=== PATIENT | female | born 1990 | race Caucasian/White ===

== ENCOUNTER 2018-08-31 12:19 | Day surgery (SDC) | payer MEDICAID ==
[2018-08-30 13:57] LABS: BASOPHILS # (AUTO) 0.1 X10'3 (0-0.2); BASOPHILS % (AUTO) 0.6 % (0-1); EOSINOPHILS # (AUTO) 0.3 X10'3 (0-0.9); EOSINOPHILS % (AUTO) 3.2 % (0-6); LYMPHOCYTES # (AUTO) 2.6 X10'3 (1.1-4.8); LYMPHOCYTES % (AUTO) 27.7 % (21-51); MEAN CORPUSCULAR HEMOGLOBIN 29.4 PG (27.0-31.0); MEAN CORPUSCULAR HGB CONC 33.1 g/dL (33.0-36.5); MEAN CORPUSCULAR VOLUME 88.7 FL (78-98); MEAN PLATELET VOLUME 7.9 FL (7.4-10.4); MONOCYTES # (AUTO) 0.7 X10'3 (0-0.9); MONOCYTES % (AUTO) 7.7 % (2-12); NEUTROPHILS # (AUTO) 5.7 X10'3 (1.8-7.7); NEUTROPHILS % (AUTO) 60.8 % (42-75); PRE OP HEMATOCRIT 42.5 % (35.0-45.0); PRE OP HEMOGLOBIN 14.1 g/dL (12.0-16.0); PRE OP PLATELET COUNT 406 X10'3 (140-440); RED BLOOD COUNT 4.79 X10'6 (4.20-5.60); RED CELL DISTRIBUTION WIDTH 15.5 % (11.5-14.5)
[2018-08-30 14:18] LABS: ALBUMIN 4.1 G/DL (3.4-5.0); ALKALINE PHOSPHATASE 69 IU/L (46-116); BLOOD UREA NITROGEN 10 MG/DL (7-18); BUN/CREATININE RATIO 11.8 (6.6-38.0); CALCIUM 9.6 MG/DL (8.5-10.1); CHLORIDE 105 MMOL/L (99-107); CREATININE 0.85 MG/DL (0.40-0.90); PRE OP ALT 23 U/L (30-65); PRE OP ANION GAP 9 (8-16); PRE OP AST 13 U/L (10-37); PRE OP BILIRUB, TOTAL 0.3 MG/DL (0.0-1.0); PRE OP GLUCOSE 110 MG/DL (70-104); PRE OP POTASSIUM 3.7 MMOL/L (3.4-5.1); PRE OP SODIUM 140 MMOL/L (135-145); TOTAL PROTEIN 8.1 G/DL (6.4-8.2); eGFR 80 ML/MIN
[2018-08-30 15:20] LABS: HCG SERUM QL NEGATIVE
[~2018-08-31] VITALS: Ht 157.5 cm; Wt 48.1 kg
[2018-08-31] VITALS (15 sets, daily range): BP systolic 108–129; BP diastolic 56–87
[~2018-08-31 12:19] MED LIST: NO HOME MEDS
[2018-08-31] MEDS ORDERED: famotidine 20mg tablet PO ONE (12:45)
[2018-08-31] MEDS ORDERED: ringers solution, lacted 1,000 ML IV SCH ×2 (12:45→15:43)
[2018-08-31] MEDS ORDERED: BUPIVAcaine/PF 2.5mg/ml (0.25%) 10ml vial ONE (15:26)
[2018-08-31] MEDS ORDERED: meperidine/PF 25mg/ml syringe IV PRN ×3 (15:45)
[2018-08-31] MEDS ORDERED: morphine 4 MG/ML inj SYRINge IV PRN ×2 (15:45)
[2018-08-31] MEDS ORDERED: ondansetron/PF 4mg/2ml inj IV PRN (15:45)
[2018-08-31] MEDS ORDERED: proCHLORperazine 10 MG/2 ml inj IV PRN (15:45)
[2018-08-31] MEDS ORDERED: sevoflurane 250ml liquid IH ONE (16:22)
[2018-08-31] MEDS ORDERED: midazolam 2 mg/2 ml injection ONE (16:29)
[2018-08-31] MEDS ORDERED: fentaNYL/PF 50MCG/1 ML 2ML syringe ONE (16:29)
[2018-08-31] MEDS ORDERED: neostigmine methylsulfate 1 MG/ML 10ml vial ONE (16:38)
[2018-08-31] MEDS ORDERED: rocuronium 10mg/ml inj IV ONE (16:38)
[2018-08-31] MEDS ORDERED: ondansetron/PF 4mg/2ml inj ONE (16:38)
[2018-08-31] MEDS ORDERED: dexamethasone sod phosphate 4mg/ml inj. ONE (16:38)
[2018-08-31] MEDS ORDERED: glycopyrrolate 0.2mg/ml inj ONE (16:38)
[2018-08-31] MEDS ORDERED: LIDOcaine 2% (20mg/ml) 5ml vial ONE (16:38)
[2018-08-31] MEDS ORDERED: propofol inj 20 ML IV ONE (16:38)
--- NOTE | 2018-08-31 17:22 | NUR ---
Received from OR via BED, accompanied by Anesthesiologist and report given by Anesthesiologist. PT DROWSY, DENIES PAIN, ABDOMEN W/3LAP SITES W/BANDAIDS CDI. 25 MG DEMEROL GIVEN FOR SHIVERS. Addendum: 08/31/18 at 1810 by Julieta Alicea RN Amended: Links added.
[2018-08-31] MEDS ORDERED: HYDROcodone/acetaminophen 5mg/325mg tablet PO ONE ×2 (17:25)
--- NOTE | 2018-08-31 21:22 | NUR ---
PT UNABLE TO VOID, BLADDER SCANNED PT FOR 850 ML URINE, 16 F WHITLEY CATHETER PLACED W/ASEPTIC TECHNIQUE FOR A TOTAL OF 1030 ML CLEAR YELLOW URINE RETURN, WHITLEY CARE INSTRUCTIONS AND D'C INSTRUCTIONS GIVEN AND GONE OVER W/PT, PT VERBALIZES UNDERSTANDING, PT D/CD TO HOME VIA W/C TO PRIVATE VEHICLE. Addendum: 08/31/18 at 2152 by Julieta Alicea RN Amended: Links added.
== END 2018-08-31 21:22 | disposition home or self-care (01) ==
LOC: PAS 12:19
PROVIDERS: ATTEND Obstetrics & Gynecology
DX: Z30.2 Encounter for sterilization (principal); F41.9 Anxiety disorder, unspecified; F32.9 Major depressive disorder, single episode, unspecified; Z82.49 Family history of ischemic heart disease and other diseases of the circulatory system; Z83.3 Family history of diabetes mellitus; Z79.899 Other long term (current) drug therapy
CPT/HCPCS: 36415; 58661; 80053; 82948; 84703; 85025; 86885; 86900; 86901; J1100; J2001; J2175; J2250; J2405; J2704; J2710; J3010; J3490; A4618; A6250; J7120

== ENCOUNTER → 2019-12-07 | Emergency (ER) | payer MEDICAID ==
[~2019-12-07] VITALS: Ht 157.5 cm; Wt 50.0 kg
[~2019-12-07] MED LIST changes: +CEPH250T PO; +LIDOcaine 1% W/epiNEPHrine 1:200,000 10ml vial IJ ONE; +LIDOcaine 1% w/epiNEPHrine 1:200,000 30ml vial IJ ONE; +TETanus/Pertussis (Acell)/Diphther VAC/PF (Tdap-Adult) 0.5ml syringe IMVAC ONE
[2019-12-07 14:47] VITALS: BP 138/91
== END | disposition home or self-care (01) ==
LOC: ER 14:41
DX: S91.311A Laceration without foreign body, right foot, initial encounter (principal); F41.9 Anxiety disorder, unspecified; F32.9 Major depressive disorder, single episode, unspecified; F17.200 Nicotine dependence, unspecified, uncomplicated; F12.90 Cannabis use, unspecified, uncomplicated; Z86.69 Personal history of other diseases of the nervous system and sense organs; Z87.440 Personal history of urinary (tract) infections; Z72.89 Other problems related to lifestyle; Z56.0 Unemployment, unspecified; W25.XXXA Contact with sharp glass, initial encounter; Y93.89 Activity, other specified; Y92.89 Other specified places as the place of occurrence of the external cause; Y99.8 Other external cause status
CPT/HCPCS: 12002; 73630; 90471; 90715; 99283

== ENCOUNTER 2019-12-09 15:22 | Emergency (ER) | payer MEDICAID ==
[~2019-12-09] VITALS: Ht 157.5 cm; Wt 43.2 kg
[~2019-12-09 15:22] MED LIST changes: -CEPH250T PO; -LIDOcaine 1% W/epiNEPHrine 1:200,000 10ml vial IJ ONE; +LIDOcaine 1% W/epiNEPHrine 1:200,000 10ml vial ONE; -LIDOcaine 1% w/epiNEPHrine 1:200,000 30ml vial IJ ONE; -TETanus/Pertussis (Acell)/Diphther VAC/PF (Tdap-Adult) 0.5ml syringe IMVAC ONE
[2019-12-09 15:28] VITALS: BP 125/88
[2019-12-09] MEDS ORDERED: CefTRIAXone 250MG IM Kit w/LIDOcaine IM ONE (17:45)
[2019-12-09] MEDS ORDERED: CEPH250T PO (17:48)
[2019-12-09] MEDS ORDERED: ibuprofen tablet 400 MG TABLET PO STA (18:39)
== END 2019-12-09 18:58 | disposition home or self-care (01) ==
LOC: ER 15:22
DX: S91.311D Laceration without foreign body, right foot, subsequent encounter (principal); F41.9 Anxiety disorder, unspecified; F32.9 Major depressive disorder, single episode, unspecified; F12.90 Cannabis use, unspecified, uncomplicated; Z86.69 Personal history of other diseases of the nervous system and sense organs; Z87.440 Personal history of urinary (tract) infections; Z72.89 Other problems related to lifestyle; Z56.0 Unemployment, unspecified; Z79.2 Long term (current) use of antibiotics; W25.XXXD Contact with sharp glass, subsequent encounter
CPT/HCPCS: 96372; 99283; J0696

== ENCOUNTER 2020-03-20 19:00 | Emergency (ER) | payer MEDICAID ==
[~2020-03-20] VITALS: Ht 157.5 cm; Wt 40.9 kg
[~2020-03-20 19:00] MED LIST changes: -LIDOcaine 1% W/epiNEPHrine 1:200,000 10ml vial ONE
[2020-03-20 19:12] VITALS: BP 143/82
== END 2020-03-20 19:21 ==
LOC: ER 19:00
DX: Z02.89 Encounter for other administrative examinations (principal); F99 Mental disorder, not otherwise specified; F19.129 Other psychoactive substance abuse with intoxication, unspecified; F41.9 Anxiety disorder, unspecified; F32.9 Major depressive disorder, single episode, unspecified; F12.90 Cannabis use, unspecified, uncomplicated; Z86.69 Personal history of other diseases of the nervous system and sense organs; Z87.440 Personal history of urinary (tract) infections; Z72.89 Other problems related to lifestyle; Z56.0 Unemployment, unspecified
CPT/HCPCS: 99283